=== PATIENT | female | born 1985 | race American Indian/Alaskan Native ===

== ENCOUNTER 2018-02-12 06:00 | Emergency (ER) | payer BC, MEDICAID ==
[2018-02-12 06:11] VITALS: BP 135/68
--- NOTE | 2018-02-12 06:22 | EDM.PDOC ---
ED HPI GENERAL MEDICAL PROBLEM - General Chief Complaint: Flank Pain Stated Complaint: BACK PAIN Time Seen by Provider: 02/12/18 06:20 Source of Information: Reports: Patient History Limitations: Reports: No Limitations - History of Present Illness INITIAL COMMENTS - FREE TEXT/NARRATIVE: right flank pain since yesterday, not going away Treatments RIVET BUCKER: Reports: Other (see below) Other Treatments RIVET BUCKER: ASA baby dose Right Flank Pain Score (Numeric/FACES): 6 - Related Data Allergies Allergy/AdvReac Type Severity Reaction Status Date / Time guaifenesin [From Robitussin] Allergy Hives Verified 02/12/18 06:12 Home Meds: Home Meds SUMAtriptan [Imitrex] 50 mg PO DAILY PRN 12/21/13 [History] Ibuprofen 400 mg PO ASDIRECTED PRN 12/14/15 [History] Past Medical History HEENT History: Reports: Impaired Vision Other HEENT History: wears glasses Cardiovascular History: Reports: None Respiratory History: Reports: None Gastrointestinal History: Reports: None Genitourinary History: Reports: UTI, Recurrent, Other (See Below) Other Genitourinary History: kidney and bladder infections 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 Musculoskeletal History: Reports: Fracture Neurological History: Reports: Migraines Psychiatric History: Reports: Anxiety, Depression Endocrine/Metabolic History: Reports: None Hematologic History: Reports: None Immunologic History: Reports: None Oncologic (Cancer) History: Reports: None Dermatologic History: Reports: None - Infectious Disease History Infectious Disease History: Reports: Chicken Pox, Hepatitis A - Past Surgical History Other Female Surgeries/Procedures: has not had a period in 4 months, test she did 2 months ago was neg Social & Family History - Family History Family Medical History: Noncontributory - Tobacco Use Smoking Status *Q: Never Smoker - Caffeine Use Caffeine Use: Reports: Soda - Recreational Drug Use Recreational Drug Use: No - Living Situation & Occupation Living situation: Reports: with Family ED ROS GENERAL - Review of Systems Review Of Systems: ROS reveals no pertinent complaints other than HPI. ED EXAM, RENAL/ - Physical Exam Exam: See Below Exam Limited By: No Limitations General Appearance: Alert, WD/WN, Mild Distress, Other (discomfort) Ears: Hearing Grossly Normal Throat/Mouth: Normal Voice, No Airway Compromise Head: Atraumatic Neck: Non-Tender, Full Range of Motion Respiratory/Chest: No Respiratory Distress Cardiovascular: Regular Rate, Rhythm GI/Abdominal: Soft, Non-Tender Back Exam: CVA Tenderness (R) Neurological: Alert, Oriented, Normal Cognition, Normal Gait, No Motor/Sensory Deficits Psychiatric: Normal Affect, Normal Mood Skin Exam: Warm, Dry, Normal Color Lymphatic: No Adenopathy Course - Vital Signs Last Recorded V/S: Last Vital Signs Temp 36.1 C 02/12/18 06:04 Pulse 99 02/12/18 06:04 Resp 18 02/12/18 06:04 BP 135/68 02/12/18 06:04 Pulse Ox 99 02/12/18 06:04 - Orders/Labs/Meds Orders: Active Orders 24 hr Category Date Time Status HCG QUALITATIVE,URINE [URCHEM] Stat Lab 02/12/18 06:07 Ordered Labs: Laboratory Tests 02/12/18 02/12/18 Range/Units 06:07 06:07 Urine Color Yellow (YELLOW) Urine Appearance Slightly cloudy (CLEAR) Urine pH 7.0 (5.0-9.0) Ur Specific [place] 1.010 (1.005-1.030) Urine Protein Negative (NEGATIVE) Urine Glucose (UA) Negative (NEGATIVE) Urine Ketones 15 H (NEGATIVE) Urine Occult Blood Negative (NEGATIVE) Urine Nitrite Negative (NEGATIVE) Urine Bilirubin Negative (NEGATIVE) Urine Urobilinogen 0.2 (0.2-1.0) mg/dL Ur Leukocyte Esterase Small H (NEGATIVE) Urine RBC 0-5 /HPF Urine WBC 10-20 H (0-5/HPF) /HPF Ur Epithelial Cells Many H /HPF Urine Bacteria Moderate H (0-FEW/HPF) /HPF Urine HCG, Qual Positive Meds: Medications Discontinued Medications Generic Name Dose Route Start Last Admin Trade Name Freq PRN Reason Stop Dose Admin Nitrofurantoin Macrocrystals 100 mg 02/12/18 06:57 Macrobid PO 02/12/18 06:58 ONETIME ONE - Re-Assessments/Exams Free Text/Narrative Re-Assessment/Exam: 02/12/18 06:58 results discussed with pt Departure - Departure Time of Disposition: 06:59 Disposition: Home, Self-Care 01 Condition: Good Clinical Impression: UTI, Urinary tract infectious disease - Discharge Information Instructions: and Urinary Tract Infection Forms: ED Department Discharge Additional Instructions: 1) rest 2) drink lots of liquids 3) follow up with family doctor rx given; macrobid 100mg bid x 20 - My Orders Last 24 Hours: My Active Orders 02/12/18 06:07 HCG QUALITATIVE,URINE [URCHEM] Stat - Assessment/Plan Last 24 Hours: My Active Orders 02/12/18 06:07 HCG QUALITATIVE,URINE [URCHEM] Stat
[2018-02-12] MEDS ORDERED: Nitrofurantoin Monohydrate/Macrocrystalline 100 MG Cap PO ONE (06:57)
== END 2018-02-12 07:06 | disposition home or self-care (01) ==
LOC: DL.ED 06:00
DX: O23.43 Unspecified infection of urinary tract in pregnancy, third trimester (principal); Z3A.30 30 weeks gestation of pregnancy; Z88.8 Allergy status to other drugs, medicaments and biological substances
CPT/HCPCS: 81001; 81025; 99284; A9270

== ENCOUNTER 2019-03-22 00:12 | Emergency (ER) | payer BC, MEDICAID ==
[2019-03-22 00:52] VITALS: BP 126/76; PULSE 80
[2019-03-22] MEDS ORDERED: methylPREDNISolone Sodium Succinate 125 MG/2 ML SDV IM ONE (01:01)
--- NOTE | 2019-03-22 01:07 | EDM.PDOC ---
ED HPI GENERAL MEDICAL PROBLEM - General Chief Complaint: Allergic Reaction Stated Complaint: ALLERGIC REACTION Time Seen by Provider: 03/22/19 00:54 Source of Information: Reports: Patient History Limitations: Reports: No Limitations - History of Present Illness INITIAL COMMENTS - FREE TEXT/NARRATIVE: This 34 yo female patient reports to the ED due to a possible allergic reaction to her medication. The patient reports she started to have hives this morning at about 1000, has taken 2 doses of Benadryl, but continues to have hives. The patient has stopped taking her new medication. The patient reports her last dose of Benadryl was at 1830 last night. The patient reports she has not had any changes to soaps, perfumes, laundry cleaning supplies or foods. The patient denies any difficulties breathing. 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: Other Medication(s) (Benadryl) - Related Data Allergies Allergy/AdvReac Type Severity Reaction Status Date / Time guaifenesin [From Robitussin] Allergy Hives Verified 03/22/19 00:33 Home Meds: Home Meds SUMAtriptan [Imitrex] 50 mg PO DAILY PRN 12/21/13 [History] Aspirin 81 mg PO DAILY 02/27/18 [History] PARoxetine [Paxil] 20 mg PO DAILY 02/27/18 [History] Past Medical History HEENT History: Reports: Impaired Vision Other HEENT History: wears glasses Cardiovascular History: Reports: Hypertension Respiratory History: Reports: None Gastrointestinal History: Reports: None Genitourinary History: Reports: UTI, Recurrent, Other (See Below) Other Genitourinary History: kidney and bladder infections ETCHER HAND History: Reports: Other ETCHER HAND History: removal of 1 ovary in June 2018 Musculoskeletal History: Reports: Fracture Neurological History: Reports: Migraines Psychiatric History: Reports: Anxiety, Depression Endocrine/Metabolic History: Reports: None Hematologic History: Reports: None Immunologic History: Reports: None Oncologic (Cancer) History: Reports: None Dermatologic History: Reports: None - Infectious Disease History Infectious Disease History: Reports: None - Past Surgical History Head Surgeries/Procedures: Reports: None Other Female Surgeries/Procedures: has not had a period in 4 months, test she did 2 months ago was neg Social & Family History - Family History Family Medical History: Noncontributory - Tobacco Use Smoking Status *Q: Never Smoker - Caffeine Use Caffeine Use: Reports: None - Recreational Drug Use Recreational Drug Use: No - Living Situation & Occupation Living situation: Reports: with Family ED ROS ALLERGIC REACTION - Review of Systems Review Of Systems: ROS reveals no pertinent complaints other than HPI. ED EXAM GENERAL NO PERIP PULSE - Physical Exam Exam: See Below Exam Limited By: No Limitations General Appearance: Alert, WD/WN, Mild Distress Eye Exam: Bilateral Eye: EOMI, Normal Inspection, PERRL Ears: Normal External Exam, Normal Canal, Hearing Grossly Normal, Normal TMs Nose: Normal Inspection, Normal Mucosa, No Blood Throat/Mouth: Normal Inspection, Normal Lips, Normal Teeth, Normal Gums, Normal Oropharynx, Normal Voice, No Airway Compromise Head: Atraumatic, Normocephalic Neck: Normal Inspection, Supple, Non-Tender, Full Range of Motion Respiratory/Chest: No Respiratory Distress, Lungs Clear, Normal Breath Sounds, No Accessory Muscle Use, Chest Non-Tender Cardiovascular: Normal Peripheral Pulses, Regular Rate, Rhythm, No Edema, No Gallop, No JVD, No Murmur, No Rub GI/Abdominal: Normal Bowel Sounds, Soft, Non-Tender, No Organomegaly, No Distention, No Abnormal Bruit, No Mass (Female) Exam: Deferred Rectal (Female) Exam: Deferred Back Exam: Normal Inspection, Full Range of Motion, NT Extremities: Normal Inspection, Normal Range of Motion, Non-Tender, Normal Capillary Refill, No Pedal Edema Neurological: Alert, Oriented, CN II-XII Intact, Normal Cognition, Normal Gait, Normal Reflexes, No Motor/Sensory Deficits Psychiatric: Normal Affect, Normal Mood Skin Exam: Other (hives to her shoulders, upper back and face) Lymphatic: No Adenopathy Course - Vital Signs Last Recorded V/S: Last Vital Signs Temp 37.1 C 03/22/19 00:37 Pulse 80 03/22/19 00:37 Resp 16 03/22/19 00:37 BP 126/76 03/22/19 00:37 Pulse Ox 100 03/22/19 00:37 - Orders/Labs/Meds Orders: Active Orders 24 hr Category Date Time Status methylPREDNISolone Sod Succ [Solu-MEDROL] Med 03/22/19 01:01 Once 125 mg IM ONETIME ONE Departure - Departure Time of Disposition: 01:07 Disposition: Home, Self-Care 01 Condition: Fair Clinical Impression: Allergic reaction caused by a drug Qualifiers: Encounter type: initial encounter Qualified Code(s): T78.40XA - Allergy, unspecified, initial encounter - Discharge Information *PRESCRIPTION DRUG MONITORING PROGRAM REVIEWED*: Not Applicable *COPY OF PRESCRIPTION DRUG MONITORING REPORT IN PATIENT JOHANN: Not Applicable Care Plan Goals: The patient was advised of the examination results during the visit. The patient was given an injection of SoluMedrol while in the ED. The patient was discharged with a script for Prednisone (20 mg) #10 to take 2 by mouth daily for 5 days. The patient was advised to continue to take Benadryl (25 mg) every 6 hours for the next 48 hours. If the patient has any additional symptoms or concerns, the patient should either return to the emergency department or visit her primary care facility. - My Orders Last 24 Hours: My Active Orders 03/22/19 01:01 methylPREDNISolone Sod Succ [Solu-MEDROL] 125 mg IM ONETIME ONE - Assessment/Plan Last 24 Hours: My Active Orders 03/22/19 01:01 methylPREDNISolone Sod Succ [Solu-MEDROL] 125 mg IM ONETIME ONE
== END 2019-03-22 01:36 | disposition home or self-care (01) ==
LOC: DL.ED 00:12
DX: L50.0 Allergic urticaria (principal); T50.905A Adverse effect of unspecified drugs, medicaments and biological substances, initial encounter; I10 Essential (primary) hypertension; F41.9 Anxiety disorder, unspecified; F32.9 Major depressive disorder, single episode, unspecified; Z79.82 Long term (current) use of aspirin; Z79.899 Other long term (current) drug therapy; Z88.8 Allergy status to other drugs, medicaments and biological substances
CPT/HCPCS: 96372; 99283; J2930

== ENCOUNTER 2019-05-16 21:22 | Emergency (ER) | payer BC ==
[2019-05-16 22:26] VITALS: BP 129/58; PULSE 81
[2019-05-17] MEDS ORDERED: Sodium Chloride 0.9% 1,000 ML IV ONE (01:11)
[2019-05-17 01:45] LABS: ANION GAP 10.9; CHLORIDE,CL 106 mmol/L (101-111); SODIUM,NA 137 mmol/L (135-145)
--- NOTE | 2019-05-17 02:32 | EDM.PDOC ---
ED HPI GENERAL MEDICAL PROBLEM - General Chief Complaint: General Stated Complaint: SHAKY Time Seen by Provider: 05/16/19 22:30 Source of Information: Reports: Patient History Limitations: Reports: No Limitations - History of Present Illness INITIAL COMMENTS - FREE TEXT/NARRATIVE: ED with c/o of sudden onset of feeling weak, emesis x 1 and just doesn't feel well now. No sore throat or ear pain, No cough or SOB. No diarrhea. Some nausea at present. - Related Data Allergies Allergy/AdvReac Type Severity Reaction Status Date / Time guaifenesin [From Robitussin] Allergy Hives Verified 05/16/19 22:11 Home Meds: Home Meds Cholecalciferol (Vitamin D3) [Vitamin D] 5,000 units PO DAILY 05/16/19 [History] [place] Carbonate 300 mg PO BID 05/16/19 [History] Multivitamin [Multivitamins] 1 cap PO DAILY 05/16/19 [History] buPROPion HCl [Wellbutrin Xl] 300 mg PO DAILY 05/16/19 [History] Past Medical History HEENT History: Reports: Impaired Vision Other HEENT History: wears glasses Cardiovascular History: Reports: Hypertension Respiratory History: Reports: None Gastrointestinal History: Reports: None Genitourinary History: Reports: UTI, Recurrent, Other (See Below) Other Genitourinary History: kidney and bladder infections 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 Musculoskeletal History: Reports: Fracture Neurological History: Reports: Migraines Psychiatric History: Reports: Anxiety, Depression Endocrine/Metabolic History: Reports: None Hematologic History: Reports: None Immunologic History: Reports: None Oncologic (Cancer) History: Reports: None Dermatologic History: Reports: None - Infectious Disease History Infectious Disease History: Reports: None - Past Surgical History Head Surgeries/Procedures: Reports: None Female Surgical History: Reports: Oophorectomy Social & Family History - Family History Family Medical History: Noncontributory - Tobacco Use Smoking Status *Q: Unknown Ever Smoked Second Hand Smoke Exposure: No - Caffeine Use Caffeine Use: Reports: Soda - Recreational Drug Use Recreational Drug Use: No - Living Situation & Occupation Living situation: Reports: with Family ED ROS GENERAL - Review of Systems Review Of Systems: Comprehensive ROS is negative, except as noted in HPI. ED EXAM, GENERAL - Physical Exam Exam: See Below Exam Limited By: No Limitations General Appearance: Alert, Mild Distress Eye Exam: Bilateral Eye: EOMI, PERRL Ears: Normal External Exam, Normal TMs Nose: Normal Inspection Throat/Mouth: Normal Inspection Head: Atraumatic, Normocephalic Neck: Normal Inspection Respiratory/Chest: No Respiratory Distress, Lungs Clear, Normal Breath Sounds Cardiovascular: Normal Peripheral Pulses, Regular Rate, Rhythm GI/Abdominal: Normal Bowel Sounds, Soft, Non-Tender Extremities: Normal Inspection, Normal Range of Motion Neurological: Alert, Oriented, Normal Cognition Psychiatric: Normal Affect, Normal Mood Skin Exam: Warm, Dry, Intact, Normal Color Course - Vital Signs Last Recorded V/S: Last Vital Signs Temp 97.1 F 05/16/19 22:22 Pulse 81 05/16/19 22:22 Resp 18 05/16/19 22:22 BP 129/58 L 05/16/19 22:22 Pulse Ox 100 05/16/19 22:22 - Orders/Labs/Meds Orders: Active Orders 24 hr Category Date Time Status CULTURE URINE [RM] Urgent Lab 05/17/19 01:04 Received Labs: Laboratory Tests 05/17/19 05/17/19 05/17/19 Range/Units 01:04 01:11 01:20 WBC 7.7 (5.0-10.0) 10^3/uL RBC 3.99 L (4.2-5.4) 10^6/uL Hgb 9.8 L D (12.0-16.0) g/dL Hct 30.9 L (37.0-47.0) % MCV 77.4 L D (80-100) fL MCH 24.6 L (27.0-34.0) pg MCHC 31.7 L (33.0-35.0) g/dL Plt Count 307 (150-450) 10^3/uL Neut % (Auto) 72.2 (42.2-75.2) % Lymph % (Auto) 18.4 L (20.5-50.1) % [place] % (Auto) 6.0 (2-8) % Eos % (Auto) 3.1 H (1.0-3.0) % Baso % (Auto) 0.3 (0.0-1.0) % Sodium (135-145) mmol/L Potassium (3.6-5.0) mmol/L Chloride (101-111) mmol/L Carbon Dioxide (21.0-31.0) mmol/L Anion Gap BUN (7-18) mg/dL Creatinine (0.6-1.3) mg/dL Est Cr Clr Drug Dosing mL/min Estimated GFR (MDRD) BUN/Creatinine Ratio Glucose (74-105) mg/dL Calcium (8.4-10.2) mg/dl Total Bilirubin (0.2-1.0) mg/dL AST (10-42) IU/L ALT (10-60) IU/L Alkaline Phosphatase (42-121) IU/L Total Protein (6.7-8.2) g/dl Albumin (3.2-5.5) g/dl Globulin Albumin/Globulin Ratio Amylase (28-100) U/L TSH, Ultra Sensitive (0.45-5.33) uIu/mL Urine Color Red (YELLOW) Urine Appearance Slightly cloudy (CLEAR) Urine pH 7.5 (5.0-9.0) Ur Specific [place] 1.020 (1.005-1.030) Urine Protein 30 H (NEGATIVE) Urine Glucose (UA) Negative (NEGATIVE) Urine Ketones Negative (NEGATIVE) Urine Occult Blood Large H (NEGATIVE) Urine Nitrite Negative (NEGATIVE) Urine Bilirubin Negative (NEGATIVE) Urine Urobilinogen 1.0 (0.2-1.0) mg/dL Ur Leukocyte Esterase Trace H (NEGATIVE) Urine RBC >100 H /HPF Urine WBC 0-5 (0-5/HPF) /HPF Ur Epithelial Cells Few (NOT SEEN) /HPF Amorphous Sediment Few (NOT SEEN) /HPF Urine Bacteria Rare (0-FEW/HPF) /HPF Urine Mucus Few H (NOT SEEN) /LPF Urine HCG, Qual Negative 05/17/19 05/17/19 Range/Units 01:20 01:20 WBC (5.0-10.0) 10^3/uL RBC (4.2-5.4) 10^6/uL Hgb (12.0-16.0) g/dL Hct (37.0-47.0) % MCV (80-100) fL MCH (27.0-34.0) pg MCHC (33.0-35.0) g/dL Plt Count (150-450) 10^3/uL Neut % (Auto) (42.2-75.2) % Lymph % (Auto) (20.5-50.1) % [place] % (Auto) (2-8) % Eos % (Auto) (1.0-3.0) % Baso % (Auto) (0.0-1.0) % Sodium 137 (135-145) mmol/L Potassium 3.9 (3.6-5.0) mmol/L Chloride 106 (101-111) mmol/L Carbon Dioxide 24.0 (21.0-31.0) mmol/L Anion Gap 10.9 BUN 14 (7-18) mg/dL Creatinine 0.8 (0.6-1.3) mg/dL Est Cr Clr Drug Dosing 108.16 mL/min Estimated GFR (MDRD) > 60 BUN/Creatinine Ratio 17.50 Glucose 101 (74-105) mg/dL Calcium 8.3 L (8.4-10.2) mg/dl Total Bilirubin 0.4 (0.2-1.0) mg/dL AST 27 (10-42) IU/L ALT 23 (10-60) IU/L Alkaline Phosphatase 67 (42-121) IU/L Total Protein 7.2 (6.7-8.2) g/dl Albumin 3.6 (3.2-5.5) g/dl Globulin 3.6 Albumin/Globulin Ratio 1.00 Amylase 39 (28-100) U/L TSH, Ultra Sensitive 3.77 (0.45-5.33) uIu/mL Urine Color (YELLOW) Urine Appearance (CLEAR) Urine pH (5.0-9.0) Ur Specific [place] (1.005-1.030) Urine Protein (NEGATIVE) Urine Glucose (UA) (NEGATIVE) Urine Ketones (NEGATIVE) Urine Occult Blood (NEGATIVE) Urine Nitrite (NEGATIVE) Urine Bilirubin (NEGATIVE) Urine Urobilinogen (0.2-1.0) mg/dL Ur Leukocyte Esterase (NEGATIVE) Urine RBC /HPF Urine WBC (0-5/HPF) /HPF Ur Epithelial Cells (NOT SEEN) /HPF Amorphous Sediment (NOT SEEN) /HPF Urine Bacteria (0-FEW/HPF) /HPF Urine Mucus (NOT SEEN) /LPF Urine HCG, Qual Meds: Medications Discontinued Medications Generic Name Dose Route Start Last Admin Trade Name Freq PRN Reason Stop Dose Admin Sodium Chloride 1,000 mls @ 999 mls/hr 05/17/19 01:11 05/17/19 01:39 Normal Saline IV 05/17/19 02:11 999 mls/hr .BOLUS ONE Administration Metoclopramide HCl 5 mg 05/17/19 02:35 05/17/19 02:41 Reglan IVPUSH 05/17/19 02:36 5 mg ONETIME ONE Administration Departure - Departure Time of Disposition: 02:43 Disposition: Home, Self-Care 01 Condition: Good Clinical Impression: Nausea & vomiting Qualifiers: Vomiting type: bilious vomiting Qualified Code(s): R11.14 - Bilious vomiting - Discharge Information *PRESCRIPTION DRUG MONITORING PROGRAM REVIEWED*: No *COPY OF PRESCRIPTION DRUG MONITORING REPORT IN PATIENT JOHANN: No Forms: ED Department Discharge Additional Instructions: follow up if symptoms worsen light diet, small amounts more often continue multivitamin - My Orders Last 24 Hours: My Active Orders 05/17/19 01:04 CULTURE URINE [RM] Urgent - Assessment/Plan Last 24 Hours: My Active Orders 05/17/19 01:04 CULTURE URINE [RM] Urgent
[2019-05-17] MEDS ORDERED: Metoclopramide 10 MG/2 ML SDV IVPUSH ONE (02:35)
== END 2019-05-17 02:49 | disposition home or self-care (01) ==
LOC: DL.ED 21:22
DX: R11.14 Bilious vomiting (principal); I10 Essential (primary) hypertension; Z88.8 Allergy status to other drugs, medicaments and biological substances
CPT/HCPCS: 36415; 80053; 81001; 81025; 82150; 84443; 85025; 87086; 87088; 87186; 96361; 96374; 99283; J2765; J7030

== ENCOUNTER 2020-05-10 20:17 | Emergency (ER) | payer BC, OTHER ==
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
[2020-05-10 21:01] VITALS: BP 159/81; PULSE 91
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
[2020-05-10] MEDS ORDERED: Butorphanol 2 MG/ML SDV IM ONE (22:33)
[2020-05-10] MEDS ORDERED: Promethazine 25 MG/ML SDV IM ONE (22:33)
== END 2020-05-10 22:51 | disposition home or self-care (01) ==
LOC: DL.ED 20:17
DX: S00.83XA Contusion of other part of head, initial encounter (principal); I10 Essential (primary) hypertension; F41.9 Anxiety disorder, unspecified; F32.9 Major depressive disorder, single episode, unspecified; Z88.8 Allergy status to other drugs, medicaments and biological substances; Z79.899 Other long term (current) drug therapy; Y04.0XXA Assault by unarmed brawl or fight, initial encounter
CPT/HCPCS: 70450; 72125; 96372; 99284; J0595; J2550

== ENCOUNTER 2021-02-15 12:34 | Emergency (ER) | payer BC, OTHER ==
[2021-02-15 14:53] VITALS: BP 139/77; PULSE 77
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
== END 2021-02-15 15:14 | disposition home or self-care (01) ==
LOC: DL.ED 12:34
DX: J01.90 Acute sinusitis, unspecified (principal); Z88.8 Allergy status to other drugs, medicaments and biological substances; Z20.822 Contact with and (suspected) exposure to COVID-19
CPT/HCPCS: 87804; 99283; U0002

== ENCOUNTER 2022-08-24 17:08 | Emergency (ER) | payer BC, OTHER ==
[2022-08-24] MEDS ORDERED: Ketorolac 10 MG Tab PO ONE (17:09)
[2022-08-24 17:24] VITALS: BP 159/87; PULSE 71
[2022-08-24] MEDS ORDERED: Sodium Chloride 0.9% 1,000 ML IV ONE (17:54)
[2022-08-24] MEDS ORDERED: HYDROmorphone 1 MG/ML Syringe IVPUSH ONE (17:54)
[2022-08-24] MEDS ORDERED: Ondansetron 4 MG/2 ML SDV IVPUSH ONE (17:59)
[2022-08-24] MEDS ORDERED: Ondansetron 4 MG/2 ML SDV ONE (18:03)
[2022-08-24] MEDS: Sodium Chloride 0.9% 10 ML Syringe FLUSH PRN ×2 (18:05→20:09)
[2022-08-24 18:38] LABS: CHLORIDE,CL 103 mmol/L (98-107); SODIUM,NA 138 mmol/L (136-145)
[2022-08-24 18:39] LABS: ESTIMATED GFR 86 mL/min (>=60)
[2022-08-24] MEDS ORDERED: Iopamidol 612 MG/ML 100 ML Bottle IVPUSH ONE (18:49)
[2022-08-24] MEDS ORDERED: Tamsulosin 0.4 MG Cap.ER PO ONE (20:00)
[2022-08-24] MEDS ORDERED: Ketorolac 30 MG/ML SDV IVPUSH ONE (20:00)
[2022-08-24] MEDS ORDERED: Ketorolac 10 MG Tab ONE (20:24)
== END 2022-08-24 20:29 | disposition home or self-care (01) ==
LOC: DL.ED 17:08
DX: N13.2 Hydronephrosis with renal and ureteral calculous obstruction (principal); N83.201 Unspecified ovarian cyst, right side; I10 Essential (primary) hypertension; E66.9 Obesity, unspecified; Z68.42 Body mass index [BMI] 45.0-49.9, adult; Z88.8 Allergy status to other drugs, medicaments and biological substances; Z86.16 Personal history of COVID-19
CPT/HCPCS: 36415; 74177; 80053; 81001; 81025; 83605; 84145; 85025; 86140; 96361; 96374; 96375; 99284; 99284-25; A9270-GY; J1170; J1885; J2405; J3490; J7030; Q9967

== ENCOUNTER 2022-09-08 19:32 | Emergency (ER) | payer OTHER, BC ==
[2022-09-08] MEDS ORDERED: Amoxicillin/Clavulanate K 875-125 MG Tab PO ONE (19:37)
[2022-09-08 19:52] VITALS: BP 129/77; PULSE 108
== END 2022-09-08 20:03 | disposition home or self-care (01) ==
LOC: DL.ED 19:32
DX: S61.551A Open bite of right wrist, initial encounter (principal); I10 Essential (primary) hypertension; E66.9 Obesity, unspecified; Z68.42 Body mass index [BMI] 45.0-49.9, adult; Z88.8 Allergy status to other drugs, medicaments and biological substances; Z86.16 Personal history of COVID-19; W50.3XXA Accidental bite by another person, initial encounter
CPT/HCPCS: 99282; 99283; A9270

== ENCOUNTER 2023-03-10 00:30 | Emergency (ER) | payer BC, OTHER ==
[2023-03-10 00:47] VITALS: BP 162/105
[2023-03-10 00:51] VITALS: PULSE 137
[2023-03-10] MEDS ORDERED: Acetaminophen 500 MG Tab PO ONE (01:05)
[2023-03-10] MEDS ORDERED: Dexamethasone 6 MG TABLET PO ONE (01:05)
== END 2023-03-10 02:40 | disposition home or self-care (01) ==
LOC: DL.ED 00:30
DX: S90.02XA Contusion of left ankle, initial encounter (principal); B30.3 Acute epidemic hemorrhagic conjunctivitis (enteroviral); H11.33 Conjunctival hemorrhage, bilateral; Y09 Assault by unspecified means; I10 Essential (primary) hypertension; E66.9 Obesity, unspecified; Z86.16 Personal history of COVID-19; Z88.8 Allergy status to other drugs, medicaments and biological substances; Z79.899 Other long term (current) drug therapy; Z68.41 Body mass index [BMI] 40.0-44.9, adult
CPT/HCPCS: 73610-RT; 99283; 99284; A9270-GY; J8540

== ENCOUNTER 2024-04-15 08:06 | Emergency (ER) | payer BC ==
[2024-04-15 08:56] VITALS: BP 133/78; PULSE 92
[2024-04-15] MEDS: cefTRIAXone 1 GM Vial IM ONE (10:05)
== END 2024-04-15 10:25 | disposition home or self-care (01) ==
LOC: DL.ED 08:06
DX: J02.0 Streptococcal pharyngitis (principal); H66.003 Acute suppurative otitis media without spontaneous rupture of ear drum, bilateral; I10 Essential (primary) hypertension; E66.9 Obesity, unspecified; Z68.42 Body mass index [BMI] 45.0-49.9, adult; Z86.16 Personal history of COVID-19; Z79.899 Other long term (current) drug therapy; Z88.8 Allergy status to other drugs, medicaments and biological substances
CPT/HCPCS: 87428; 87430; 96372; 99283; 99284; J0696

== ENCOUNTER 2024-04-29 19:09 | Emergency (ER) | payer BC ==
[2024-04-29 19:36] VITALS: BP 142/64; PULSE 88
== END 2024-04-29 20:29 | disposition left against medical advice (07) ==
LOC: DL.ED 19:09
DX: Z53.21 Procedure and treatment not carried out due to patient leaving prior to being seen by health care provider (principal)

== ENCOUNTER 2024-12-21 20:41 | Emergency (ER) | payer BC ==
[2024-12-21 20:54] VITALS: BP 111/62; PULSE 111
[2024-12-21] MEDS: Diphtheria,Pertussis(Acell),Tetanus Vaccine 0.5 ML Syringe IM ONE (21:01)
== END 2024-12-21 21:08 | disposition home or self-care (01) ==
LOC: DL.ED 20:41
DX: S61.236A Puncture wound without foreign body of right little finger without damage to nail, initial encounter (principal); I10 Essential (primary) hypertension; E66.9 Obesity, unspecified; Z88.8 Allergy status to other drugs, medicaments and biological substances; Z79.899 Other long term (current) drug therapy; Z86.16 Personal history of COVID-19; W86.8XXA Exposure to other electric current, initial encounter
CPT/HCPCS: 90471; 90715; 99282; 99283-25

== ENCOUNTER 2025-01-31 20:09 | Emergency (ER) | payer BC ==
[2025-01-31] MEDS: Ketorolac 30 MG/ML SDV IVPUSH ONE (20:40)
[2025-01-31 20:42] LABS: BASOPHILS PERCENT AUTO 0.3 % (0.0-1.0); EOSINOPHILS PERCENT AUTO 5.5 % (1.0-3.0); LYMPHOCYTES PERCENT AUTO 20.0 % (20.5-50.1); MONOCYTES PERCENT AUTO 6.9 % (2-8); NEUTROPHILS PERCENT AUTO 67.3 % (42.2-75.2); PLATELET COUNT,PLT 342 10^3/uL (150-450); RED BLOOD CELL COUNT 4.85 10^6/uL (4.2-5.4); WHITE BLOOD CELL COUNT,WBC 8.7 10^3/uL (5.0-10.0)
[2025-01-31 21:07] LABS: LACTIC ACID 0.8 mmol/L (0.4-2.0)
[2025-01-31 21:12] LABS: A/G RATIO 1.0; ALANINE AMINOTRANSFERASE,ALT 54 U/L (14-59); ASPARTATE AMNIOTRANSFERASE,AST 39 U/L (15-37); BILIRUBIN TOTAL 0.4 mg/dL (0.2-1.0); BLOOD UREA NITROGEN,BUN 18 mg/dL (7-18); CREATININE 0.96 mg/dL (0.55-1.02); EST CRCL DRUG DOSING (CG) 88.81 mL/min; GLUCOSE RANDOM 95 mg/dL (70-99); PROTEIN TOTAL,TP 8.0 g/dL (6.4-8.2); TSH ULTRASENSITIVE 3.09 uIU/mL (0.36-3.74)
[2025-01-31 21:17] LABS: CARBON DIOXIDE,CO2 26 mmol/L (21-32); CHLORIDE,CL 99 mmol/L (98-107); POTASSIUM,K 3.2 mmol/L (3.5-5.1); SODIUM,NA 134 mmol/L (136-145)
[2025-01-31 21:18] LABS: ESTIMATED GFR 78 mL/min (>=60); ETHANOL BLOOD MEDICAL < 3 mg/dL (0)
[2025-01-31 22:01] LABS: APPEARANCE,URINE SLIGHTLY CLOUDY (CLEAR); GLUCOSE,URINE NEGATIVE (NEGATIVE); OCCULT BLOOD,URINE MODERATE (NEGATIVE)
[2025-01-31 22:06] LABS: AMPHETAMINES,URINE NEGATIVE (NEGATIVE); BARBITURATES,URINE NEGATIVE (NEGATIVE); MDMA (ECSTASY), URINE NEGATIVE (NEGATIVE); METHAMPHETAMINES,URINE NEGATIVE (NEGATIVE); OPIATES,URINE NEGATIVE (NEGATIVE); OXYCODONE,URINE NEGATIVE (NEGATIVE); PHENCYCLIDINE,URINE NEGATIVE (NEGATIVE); TCA,URINE NEGATIVE (NEGATIVE)
[2025-01-31 22:11] LABS: EPITHELIAL CELLS,URINE MODERATE /HPF (NOT SEEN)
[2025-01-31 22:36] VITALS: BP 115/51; PULSE 61
== END 2025-01-31 22:40 | disposition home or self-care (01) ==
LOC: DL.ED 20:09
DX: E86.0 Dehydration (principal); I10 Essential (primary) hypertension; Z88.8 Allergy status to other drugs, medicaments and biological substances; Z79.899 Other long term (current) drug therapy
CPT/HCPCS: 36415; 70450; 71045; 80053; 80305; 80307; 81001; 81025; 83605; 83690; 83735; 84443; 84484; 85025; 93005; 96361; 96374; 99285; J1885; J7030; 93010; 99284